=== PATIENT | female | born 1930 | race Caucasian/White ===

== ENCOUNTER → 2017-10-27 | Outpatient (CLI) | payer MEDICARE | END | disposition home or self-care (01) | LOC: LABWHC1 10:58 | PROVIDERS: ATTEND Otolaryngology | DX: Z01.818 Encounter for other preprocedural examination (principal); I10 Essential (primary) hypertension; I49.1 Atrial premature depolarization | CPT/HCPCS: 36415; 93005 ==

== ENCOUNTER 2018-07-08 14:39 | Emergency (ER) | payer MEDICARE ==
--- NOTE | 2018-07-08 15:32 | ED ---
Fall HPI - General Chief Complaint: Fall Stated Complaint: fall/shoulder pain Time Seen by Provider: 07/08/18 15:11 Source: patient, family, RN notes reviewed Mode of arrival: wheelchair Limitations: no limitations - History of Present Illness Initial Comments: This is an 87-year-old female who presents to the emergency department with chief complaint of fall injury. Patient states on Thursday she fell on the hardwood floor in her kitchen. She states that she landed on her right shoulder. She states that since that time she's had worsening pain and decreased mobility of the right shoulder. Denies any other injuries or trauma. Denies head, neck or back pain. Denies loss of consciousness, nausea or vomiting, dizziness or headache. Patient denies blood thinner use. - Related Data Allergies Allergy/AdvReac Type Severity Reaction Status Date / Time No Known Allergies Allergy Verified 07/08/18 15:01 Review of Systems ROS Statement: Those systems with pertinent positive or pertinent negative responses have been documented in the HPI. ROS Other: All systems not noted in ROS Statement are negative. Past Medical History Past Medical History: Hypertension History of Any Multi-Drug Resistant Organisms: None Reported Past Surgical History: Appendectomy, Cholecystectomy, Ear Surgery, Hysterectomy Past Psychological History: Anxiety Smoking Status: Current some day smoker Past Alcohol Use History: Occasional Past Drug Use History: None Reported General Exam - General Exam Comments Initial Comments: General: Awake and alert, well-developed; in no apparent distress. Patient is hard of hearing. Niece is at bedside. HEENT: Head atraumatic, normocephalic. Pupils are equal, round and reactive to light. Extraocular movements intact. Oropharynx moist without erythema or exudate. Neck: Supple. Normal ROM. No tenderness. Cardiovascular: Regular rate and rhythm. No murmurs, rubs or gallops. Chest symmetrical. Respiratory: Lungs clear to auscultation bilaterally. No wheezes, rales or rhonchi. Normal respiratory effort with no use of accessory muscles. Musculoskeletal: There is tenderness and soft tissue swelling noted to the anterior right shoulder. No tenderness on palpation of clavicle, AC joint or scapular spine. Limited range of motion with flexion and abduction due to pain. Sensation is intact. Radial pulses are 2+ equal and palpable bilaterally. Skin: Motley, warm and dry without rashes or lesions. Neurological: Alert and oriented x3. CN II-XII grossly intact. Speech is fluent and answers are appropriate. No focal neuro deficits. Psychiatric: Normal mood and affect. No overt signs of depression or anxiety noted. Limitations: physical limitation Course Vital Signs 07/08/18 14:57 Temperature 99.2 F Pulse Rate 72 Respiratory 20 Rate Blood Pressure 106/60 O2 Sat by Pulse 95 Oximetry Medical Decision Making - Medical Decision Making This is an 87-year-old female who presents to the emergency department with chief complaint of right shoulder injury. Patient reports falling and this past Thursday and landing directly onto her shoulder. She denies any other injuries or trauma. She does state that she has limited range of motion and pain to the right shoulder. On physical examination, there is tenderness and soft tissue swelling to the anterior right shoulder. Limited active range of motion due to pain. X-rays of the right shoulder and humerus were obtained which revealed no acute abnormalities. Patient states she does have a follow- up appointment scheduled with Dr. Reddy next Thursday. Patient will be provided with a sling, however she was instructed to take her arm out of the sling at least once every hour and perform gentle motion and rotation of the right shoulder. Movements and exercises were demonstrated. Also recommended ice 3-4 times a day for 15 minutes at a time. Patient is in no acute distress and will be discharged home at this time. She is in agreement with plan and voices understanding. All questions were answered. - Radiology Data Radiology results: report reviewed X-ray right shoulder and right humerus findings: There is no acute fracture/ dislocation evident. Moderate narrowing glenohumeral joint space as well as moderately severe narrowing subacromial joint space. The bony spur formation and subchondral cyst formation noted. Moderate to severe AC joint arthropathy also appreciated. Visualized ribs are intact and unremarkable. Impression: There is no acute fracture or dislocation. Disposition Clinical Impression: Contusion of right shoulder Disposition: HOME SELF-CARE Condition: Good Instructions: Contusion in Adults (ED), Shoulder Pain (ED) Additional Instructions: Please follow-up with Dr. Reddy as scheduled. If wearing the sling, please take arm out at least once every hour and perform gentle motion. Please apply ice to the right shoulder 3-4 times daily for 15 minutes at a time. Please follow up with primary care provider within 1-2 days. Return to emergency department if symptoms should worsen or any concerns arise. Is patient prescribed a controlled substance at d/c from ED?: No Referrals: Ignacio Fermin MD [Primary Care Provider] - 1-2 days Time of Disposition: 15:58
--- NOTE | 2018-07-08 15:43 | XR ---
EXAMINATION TYPE: XR shoulder complete RT, XR humerus RT DATE OF EXAM: 07/08/2018 CLINICAL HISTORY: pain TECHNIQUE: Three views of the right shoulder are obtained. Into views of the right humerus are also submitted. COMPARISON: None FINDINGS: There is no acute fracture/dislocation evident. Moderate narrowing glenohumeral joint spac e as well as moderately severe narrowing subacromial joint space. The bony spur formation and subchon dral cyst formation noted. Moderate to severe AC joint arthropathy also appreciated. The visualized r ibs are intact and unremarkable. IMPRESSION: 1. There is no acute fracture or dislocation. ICD 10 NO FRACTURE, INITIAL EVALUATION
[2018-07-08 16:12] VITALS: BP 136/83; PULSE 61; RESP 17; TEMP 98.3
== END 2018-07-08 16:07 | disposition home or self-care (01) ==
LOC: EC 14:39
DX: S40.011A Contusion of right shoulder, initial encounter (principal); F17.200 Nicotine dependence, unspecified, uncomplicated; W19.XXXA Unspecified fall, initial encounter; Y92.000 Kitchen of unspecified non-institutional (private) residence as the place of occurrence of the external cause
CPT/HCPCS: 99283

== ENCOUNTER → 2020-12-20 | Outpatient (CLI) | payer MEDICARE ==
--- NOTE | 2020-12-20 16:21 | CT ---
EXAMINATION TYPE: CT brain wo con DATE OF EXAM: 12/20/2020 COMPARISON: 09/05/2014 HISTORY: 89-year-old female S06.0X9A low, Concussion. Also growth along the left frontal region per p atient. TECHNIQUE: Examination was done in axial plane without intravenous contrast. Coronal and sagittal r econstructions performed. CT DLP: 1055.1 mGycm Automated exposure control for dose reduction was used. FINDINGS: There is no evidence of acute intracranial hemorrhage, acute ischemic changes, mass effect, or extra -axial fluid collection. There is no effacement of cerebral sulci or basal subarachnoid cisterns. T here is no hydrocephalus. There is no midline shift. Munoz-white matter distinction is preserved. Redemonstrated 1 cm extra-axial mass along the right paramedian superior frontoparietal junction, unc hanged in size from 2013 with some progressive calcification. Normal variation of persistent CSP. Mil d age-related generalized supratentorial volume loss. Prominent atherosclerotic calcifications at th e V3/V4 junction of both vertebral arteries and also throughout the carotid siphons. Slight leftward nasal septal deviation. Visualized paranasal sinuses and mastoid air cells appear jon ar. Orbits and globes are intact. Normal variation of hyperostosis frontalis interna. IMPRESSION: 1. Stable 1 cm meningioma along the high right paramedian frontoparietal junction. 2. Mild age-related atrophy and normal variation of hyperostosis frontalis interna redemonstrated. 3. No acute intracranial abnormality seen.
== END | disposition home or self-care (01) ==
LOC: RADCTMAIN 15:50
PROVIDERS: ATTEND Internal Medicine
DX: D32.0 Benign neoplasm of cerebral meninges (principal)
CPT/HCPCS: 70450